=== PATIENT | male | born 1990 | race African-American/Black ===

== ENCOUNTER 2024-02-07 15:54 | Emergency (ER) | payer OTHER ==
[~2024-02-07] VITALS: Ht 177.8 cm; Wt 94.4 kg
[2024-02-07] MEDS: KETOROLAC 60MG 2ML VIAL IM ONE (18:18)
[2024-02-07] MEDS: methocarbamoL 500 MG TAB PO ONE (18:18)
[2024-02-07] MEDS ORDERED: METH-1164 PO (18:56)
[2024-02-07] MEDS ORDERED: NAPR-837 PO (18:56)
[2024-02-07 19:03] VITALS: BP 136/84; TEMP 97.3; O2SAT 98
== END 2024-02-07 19:05 | disposition home or self-care (01) ==
LOC: EDSEX 15:54 → M ED 15:54
DX: Z04.1 Encounter for examination and observation following transport accident (principal); M62.838 Other muscle spasm; M54.2 Cervicalgia; Z91.013 Allergy to seafood
CPT/HCPCS: 72131; 96372; 99283; J1885